=== PATIENT | female | born 1990 | race Caucasian/White ===

== ENCOUNTER 2019-06-02 13:01 | Observation (INO) ==
[2019-06-02 13:42] VITALS: BP 138/65
--- NOTE | 2019-06-02 16:59 | OB/GYN Progress Note ---
Date of Encounter: 06/02/19 Time of Encounter: 14:00 - Assessment and Plan (1) 30 weeks gestation of Status: Acute (2) Decreased movement Status: Acute Basline 140 and category 1, reassuring for gestational age. Patient was then feeling movements after arrival. Qualifiers: Fetus number: single or unspecified fetus Trimester: third trimester Qual ified Code(s): O36.8130 - Decreased movements, third trimester, not applicable or unspecified Objective - Vital Signs Vital Signs: Vital Signs Temp Pulse Resp BP Pulse Ox 06/02/19 13:36 98.5 F 81 14 138/65 99 Intake and Output 06/02/19 06/02/19 06/02/19 07:59 15:59 23:59 Other: Weight 158.1 kg Patient Weight 06/02/19 23:59 Weight 158.1 kg
== END 2019-06-02 14:50 | disposition home or self-care (01) ==
LOC: 1NENULAB
PROVIDERS: ADMIT Obstetrics & Gynecology; ATTEND Obstetrics & Gynecology

== ENCOUNTER 2019-07-05 11:03 | Observation (INO) ==
[2019-07-05 12:50] LABS: Bilirubin,Urine Negative (Negative); Blood,Urine Negative (Negative); Clarity,Urine Clear (Clear); Color,Urine Yellow (Yellow); Glucose,Urine (UA) Normal (Normal); Ketones,Urine Negative (Negative); Leukocyte Esterase,Urine Small (Negative); Nitrite,Urine Negative (Negative); Protein,Urine Negative (Neg-Trace); Specific Gravity,Urine 1.009 (1.010-1.025); Urobilinogen,Urine Normal (Normal)
[2019-07-05 12:57] LABS: Bacteria,Urine Few per hpf (None-Few); Basophils % 0.4 %; Eosinophils # 0.2 K/mcL (0.0-0.6); Eosinophils % 1.4 %; Hematocrit 35.3 % (35.3-44.9); Hemoglobin 11.2 g/dL (11.5-15.4); Hyaline Casts,Urine None Seen per lpf (None-Few); Immature Granulocytes % 0.7 % (0-4); Lymphocytes # 1.7 K/mcL (0.6-4.6); Lymphocytes % 15.4 %; Mean Corpuscular HGB Conc 31.7 g/dL (31.6-35.5); Mean Corpuscular Hemoglobin 25.5 pg (28.0-33.3); Mean Corpuscular Volume 80.4 fL (83.0-100.0); Mean Platelet Volume 9.7 fL (9.4-12.4); Monocytes # 0.6 K/mcL (0.0-1.3); Monocytes % 5.7 %; Neutrophils # 8.5 K/mcL (1.6-8.9); Platelet Count 272 K/mcL (140-400); RBC,Urine 0-3 per hpf (0-3); Red Blood Count 4.39 M/mcL (3.82-4.97); Red Cell Distribution Width 15.4 % (11.5-14.5); Segmented Neutrophils % 76.4 %; Squamous Epithelial Cell,Urine Many per lpf (None-Few); WBC,Urine 0-3 per hpf (0-3); White Blood Count 11.1 K/mcL (4.3-11.1)
[2019-07-05 13:09] LABS: Protein/Creatinine Ratio,Urine 0.17 mg/mg (0.00-0.20)
[2019-07-05 13:33] LABS: Alanine Aminotransferase 11 Units/L (7-52); Aspartate Amino Transferase 8 Units/L (13-39); BUN/Creatinine Ratio 19 (6-26); Blood Urea Nitrogen 8 mg/dL (6-20); Lactate Dehydrogenase 127 Units/L (140-271); Uric Acid 3.4 mg/dL (2.3-7.6); eGFR For African Americans > 60 (> 60); eGFR For Non-African Americans > 60 (> 60)
--- NOTE | 2019-07-05 14:24 | Discharge Summary ---
Date of Encounter: 07/05/19 Time of Encounter: 15:47 - Discharge Diagnosis (1) 34 weeks gestation of Priority: Primary Status: Acute Comments: Admit to observation for complaint of headache and visual disturbance (2) Headache in Priority: Secondary Status: Acute Comments: Blood pressures within normal limits while being observed All Pre-Eclampsia labs normal Qualifiers: Trimester: third trimester Qualified Code(s): O26.893 - Other specified related conditions, third trimester; R51 - Headache (3) NST (non-stress test) reactive Priority: Secondary Status: Acute Comments: Category I tracing (4) Gestational diabetes mellitus (GDM) controlled on oral hypoglycemic drug Priority: Secondary Status: Acute Comments: Continue Metformin as ordered Follow up for 2-hr GTT testing Qualifiers: Trimester: third trimester Qualified Code(s): O24.415 - Gestational diabetes mellitus in , controlled by oral hypoglycemic drugs - Discharge Medications Prescriptions: No Action Metformin HCl [Fortamet] 500 mg PO DAILY Aspirin [Adult Aspirin Regimen] 81 mg PO DAILY Fluticasone Propionate Nasal [Flonase] 1 spray PRN PRN PRN Reason: Congestion Pnv No.95/Ferrous Fum/Folic AC [ Caplet] 1 each PO DAILY Home Medications: Pnv No.95/Ferrous Fum/Folic AC [ Caplet] 1 each PO DAILY 02/02/19 [History] Metformin HCl [Fortamet] 500 mg PO DAILY 06/02/19 [History] Aspirin [Adult Aspirin Regimen] 81 mg PO DAILY 06/08/19 [History] Fluticasone Propionate Nasal [Flonase] 1 spray PRN PRN 07/05/19 [History] Allergies/Adverse Reactions: Allergy/AdvReac Type Severity Reaction Status Date / Time No Known Allergies Allergy Verified 07/05/19 12:13 Data Procedures and tests throughout hospitalization: Laboratory Tests 07/05/19 07/05/19 07/05/19 12:39 12:39 12:39 WBC 11.1 RBC 4.39 Hgb 11.2 L Hct 35.3 MCV 80.4 L MCH 25.5 L MCHC 31.7 RDW 15.4 H Plt Count 272 MPV 9.7 Immature Gran % 0.7 Seg Neutrophils % 76.4 Lymphocytes % 15.4 Monocytes % 5.7 Eosinophils % 1.4 Basophils % 0.4 Neutrophils # 8.5 Lymphocytes # 1.7 Monocytes # 0.6 Eosinophils # 0.2 Basophils # 0.0 BUN Creatinine Est GFR ( Amer) Est GFR (Non-Af Amer) BUN/Creatinine Ratio Uric Acid AST ALT Lactate Dehydrogenase Urine Color Yellow Urine Clarity Clear Urine pH 7.0 Ur Specific Moville 1.009 L Urine Protein Negative Urine Glucose (UA) Normal Urine Ketones Negative Urine Blood Negative Urine Nitrite Negative Urine Bilirubin Negative Urine Urobilinogen Normal Ur Leukocyte Esterase Small H Urine Microscopic RBC 0-3 Urine Microscopic WBC 0-3 Ur Squamous Epith Cells Many H Urine Bacteria Few Hyaline Casts None Seen Ur Culture Indicated? YES A Urine Creatinine 30 Protein/Creatinin Ratio 0.17 Urine Total Protein 5 07/05/19 12:39 WBC RBC Hgb Hct MCV MCH MCHC RDW Plt Count MPV Immature Gran % Seg Neutrophils % Lymphocytes % Monocytes % Eosinophils % Basophils % Neutrophils # Lymphocytes # Monocytes # Eosinophils # Basophils # BUN 8 Creatinine 0.43 L Est GFR ( Amer) > 60 Est GFR (Non-Af Amer) > 60 BUN/Creatinine Ratio 19 Uric Acid 3.4 AST 8 L ALT 11 Lactate Dehydrogenase 127 L Urine Color Urine Clarity Urine pH Ur Specific Moville Urine Protein Urine Glucose (UA) Urine Ketones Urine Blood Urine Nitrite Urine Bilirubin Urine Urobilinogen Ur Leukocyte Esterase Urine Microscopic RBC Urine Microscopic WBC Ur Squamous Epith Cells Urine Bacteria Hyaline Casts Ur Culture Indicated? Urine Creatinine Protein/Creatinin Ratio Urine Total Protein Labs on day of discharge: Labs from last 24 hours 07/05/19 07/05/19 07/05/19 12:39 12:39 12:39 WBC RBC Hgb Hct MCV MCH MCHC RDW Plt Count MPV Immature Gran % Seg Neutrophils % Lymphocytes % Monocytes % Eosinophils % Basophils % Neutrophils # Lymphocytes # Monocytes # Eosinophils # Basophils # BUN 8 Creatinine 0.43 L Est GFR ( Amer) > 60 Est GFR (Non-Af Amer) > 60 BUN/Creatinine Ratio 19 Uric Acid 3.4 AST 8 L ALT 11 Lactate Dehydrogenase 127 L Urine Color Yellow Urine Clarity Clear Urine pH 7.0 Ur Specific Moville 1.009 L Urine Protein Negative Urine Glucose (UA) Normal Urine Ketones Negative Urine Blood Negative Urine Nitrite Negative Urine Bilirubin Negative Urine Urobilinogen Normal Ur Leukocyte Esterase Small H Urine Microscopic RBC 0-3 Urine Microscopic WBC 0-3 Ur Squamous Epith Cells Many H Urine Bacteria Few Hyaline Casts None Seen Ur Culture Indicated? YES A Urine Creatinine 30 Protein/Creatinin Ratio 0.17 Urine Total Protein 5 07/05/19 12:39 WBC 11.1 RBC 4.39 Hgb 11.2 L Hct 35.3 MCV 80.4 L MCH 25.5 L MCHC 31.7 RDW 15.4 H Plt Count 272 MPV 9.7 Immature Gran % 0.7 Seg Neutrophils % 76.4 Lymphocytes % 15.4 Monocytes % 5.7 Eosinophils % 1.4 Basophils % 0.4 Neutrophils # 8.5 Lymphocytes # 1.7 Monocytes # 0.6 Eosinophils # 0.2 Basophils # 0.0 BUN Creatinine Est GFR ( Amer) Est GFR (Non-Af Amer) BUN/Creatinine Ratio Uric Acid AST ALT Lactate Dehydrogenase Urine Color Urine Clarity Urine pH Ur Specific Moville Urine Protein Urine Glucose (UA) Urine Ketones Urine Blood Urine Nitrite Urine Bilirubin Urine Urobilinogen Ur Leukocyte Esterase Urine Microscopic RBC Urine Microscopic WBC Ur Squamous Epith Cells Urine Bacteria Hyaline Casts Ur Culture Indicated? Urine Creatinine Protein/Creatinin Ratio Urine Total Protein Date of admission: 07/05/19 11:03 Primary care physician: Pat Pope Discharging clinician: Patricia Varner Anticipated date of discharge: 07/05/19 - Patient Status Disposition: Home, Self-Care Condition: Good Functional capacity at discharge: independent ambulation Overall status at discharge: patient is progressing back to baseline - Discharge Instructions Follow Up With: Pat Pope, BLANCA [Primary Care Provider] - Forms: Work/School Release Additional Instructions: Keep OB appointments LABOR AND DELIVERY DISCHARGE INSTRUCTIONS Signs and Symptoms to be Reported to your Doctor Immediately: * Sudden gush, continuous or intermittent lead of fluid from vagina (note the time of gush and color of fluid) * Onset of bright red vaginal bleeding with or without pain (if you had a vaginal exam during this visit you may notice some dark red spotting. This is normal.) * Lower abdominal cramping or backache that is premenstrual-like feeling. * More than 6 contractions in one hour. * Burning during urination, having to urinate more frequently or pain in your mid-back. * A change in the baby's activity. This could be an increase or decrease in activity. * Severe headache which does not go away with tylenol. * Sudden swelling in the face, hands, arms and/or legs. * Upper abdominal pain - sometimes associated with heartburn or nausea and is not relieved by Maalox, Mylanta or Tums. * Dizziness or blurred vision or visual disturbances (seeing stars/lights). * Kick Counts One hour after a meal, lay down on one side in a quiet place. Count the number of scar the baby moves during an hour. If less than 6 movements, notify your physician. Diet: *Force fluids - 8-10 tall glasses of fluid per day. May include popsicles and jello. 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 She states she did not take any Tylenol for the headache. She reports positive movement, denies fluid leakage, vaginal bleeding and contractions. Pre-E labs drawn, all WNL, blood pressures WNL while here. After further investigation, patient states that she was bitten multiple times by bugs while she was outside yesterday. States she has been congested and even feels that her throat was a little swollen after this. Patient was instructed to take Benadryl when she gets home since it sounds as though she may be reacting to the insect bites. Encouraged to return for any s/s of pre-eclampsia. She has an NST scheduled tomorrow for GDM. Time Attestation: Total time spent providing and/or coordinating discharge services: Time Spent: Less than 30 minutes Exam - Constitutional General appearance IM: A&O X 3, no acute distress, answers questions appropriately - Respiratory Respiratory exam: Present: CTAB. Absent: respiratory distress - Cardiovascular Cardiovascular exam IM: Present: RRR, +S1, +S2. Absent: irregular rhythm - GI/Abdominal GI/Abdominal exam IM: normal bowel sounds, soft - Rectal Rectal exam: deferred - External exam: normal external exam - Extremities Exam Extremities exam IM: Present: full ROM, normal capillary refill, normal inspection. Absent: calf tenderness - Neurological Exam Neurological exam: alert, normal gait, oriented X3 - VTE Reasons for not Prescribing Prophylaxis: Treatment not Indicated - Low risk for VTE
== END 2019-07-05 14:30 | disposition home or self-care (01) ==
LOC: 1NENULAB
PROVIDERS: ADMIT Registered Nurse; ATTEND Registered Nurse

== ENCOUNTER → 2019-07-27 19:27 | Observation (INO) ==
[2019-07-27 17:41] LABS: Basophils # 0.1 K/mcL (0.0-0.2); Basophils % 0.4 %; Eosinophils # 0.1 K/mcL (0.0-0.6); Eosinophils % 1.2 %; Hematocrit 35.3 % (35.3-44.9); Hemoglobin 11.5 g/dL (11.5-15.4); Immature Granulocytes % 0.9 % (0-4); Lymphocytes # 2.2 K/mcL (0.6-4.6); Lymphocytes % 18.7 %; Mean Corpuscular HGB Conc 32.6 g/dL (31.6-35.5); Mean Corpuscular Hemoglobin 25.9 pg (28.0-33.3); Mean Corpuscular Volume 79.5 fL (83.0-100.0); Mean Platelet Volume 10.1 fL (9.4-12.4); Monocytes # 0.7 K/mcL (0.0-1.3); Monocytes % 5.9 %; Neutrophils # 8.6 K/mcL (1.6-8.9); Platelet Count 259 K/mcL (140-400); Red Blood Count 4.44 M/mcL (3.82-4.97); Red Cell Distribution Width 15.5 % (11.5-14.5); Segmented Neutrophils % 72.9 %; White Blood Count 11.8 K/mcL (4.3-11.1)
[2019-07-27 17:44] LABS: Creatinine,Urine 122 mg/dL; Protein/Creatinine Ratio,Urine 0.12 mg/mg (0.00-0.20)
[2019-07-27 19:12] LABS: Alanine Aminotransferase 9 Units/L (7-52); Aspartate Amino Transferase 8 Units/L (13-39); BUN/Creatinine Ratio 15 (6-26); Blood Urea Nitrogen 8 mg/dL (6-20); Lactate Dehydrogenase 112 Units/L (140-271); Uric Acid 3.8 mg/dL (2.3-7.6); eGFR For African Americans > 60 (> 60); eGFR For Non-African Americans > 60 (> 60)
[2019-07-27 19:18] LABS: Amphetamine Screen,Urine Negative ng/mL (Cutoff=1000); Barbiturate Screen,Urine Negative ng/mL (Cutoff=200); Benzodiazepines Screen,Urine Negative ng/mL (Cutoff=200); Cannabinoid Screen,Urine Positive ng/mL (Cutoff = 50); Cocaine Screen,Urine Negative ng/mL (Cutoff= 300); Opiate Screen,Urine Negative ng/mL (Cutoff=300); Phencyclidine Screen,Urine Negative ng/mL (Cutoff=25)
--- NOTE | 2019-07-27 19:21 | Discharge Summary ---
Date of Encounter: 07/27/19 Time of Encounter: 19:21 - Discharge Diagnosis (1) 38 weeks gestation of Priority: Primary Status: Acute Comments: admitted for PIH evaluation (2) Elevated blood pressure affecting in third trimester, antepartum Priority: Secondary Status: Acute Comments: PIH labs WNL BP WNL (3) NST (non-stress test) reactive Priority: Secondary Status: Acute Comments: FHR 125 bpm moderate variability +15x15 accels no decels noted. No contractions noted. Cat. 1 tracing - Discharge Medications Prescriptions: No Action Metformin HCl [Fortamet] 500 mg PO DAILY Aspirin [Adult Aspirin Regimen] 81 mg PO DAILY Fluticasone Propionate Nasal [Flonase] 1 spray PRN PRN PRN Reason: Congestion Cetirizine HCl 1 tab Pnv No.95/Ferrous Fum/Folic AC [ Caplet] 1 each PO DAILY Home Medications: Pnv No.95/Ferrous Fum/Folic AC [ Caplet] 1 each PO DAILY 02/02/19 [History] Metformin HCl [Fortamet] 500 mg PO DAILY 06/02/19 [History] Aspirin [Adult Aspirin Regimen] 81 mg PO DAILY 06/08/19 [History] Fluticasone Propionate Nasal [Flonase] 1 spray PRN PRN 07/05/19 [History] Cetirizine HCl 1 tab 07/27/19 [History] Allergies/Adverse Reactions: Allergy/AdvReac Type Severity Reaction Status Date / Time No Known Allergies Allergy Verified 07/05/19 12:13 Data Procedures and tests throughout hospitalization: Laboratory Tests 07/27/19 07/27/19 07/27/19 16:50 16:50 16:50 WBC 11.8 H RBC 4.44 Hgb 11.5 Hct 35.3 MCV 79.5 L MCH 25.9 L MCHC 32.6 RDW 15.5 H Plt Count 259 MPV 10.1 Immature Gran % 0.9 Seg Neutrophils % 72.9 Lymphocytes % 18.7 Monocytes % 5.9 Eosinophils % 1.2 Basophils % 0.4 Neutrophils # 8.6 Lymphocytes # 2.2 Monocytes # 0.7 Eosinophils # 0.1 Basophils # 0.1 BUN Creatinine Est GFR ( Amer) Est GFR (Non-Af Amer) BUN/Creatinine Ratio Uric Acid AST ALT Lactate Dehydrogenase Urine Creatinine 122 Protein/Creatinin Ratio 0.12 Urine Total Protein 15 H Urine Opiates Screen Negative Ur Buprenorphine Scrn Negative Ur Barbiturates Screen Negative Ur Phencyclidine Scrn Negative Ur Amphetamines Screen Negative U Benzodiazepines Scrn Negative Urine Cocaine Screen Negative U Marijuana (THC) Screen Positive H Ur Drug Screen Interp See Below Specimen Rejected Hemolyzed 07/27/19 18:12 WBC RBC Hgb Hct MCV MCH MCHC RDW Plt Count MPV Immature Gran % Seg Neutrophils % Lymphocytes % Monocytes % Eosinophils % Basophils % Neutrophils # Lymphocytes # Monocytes # Eosinophils # Basophils # BUN 8 Creatinine 0.54 L Est GFR ( Amer) > 60 Est GFR (Non-Af Amer) > 60 BUN/Creatinine Ratio 15 Uric Acid 3.8 AST 8 L ALT 9 Lactate Dehydrogenase 112 L Urine Creatinine Protein/Creatinin Ratio Urine Total Protein Urine Opiates Screen Ur Buprenorphine Scrn Ur Barbiturates Screen Ur Phencyclidine Scrn Ur Amphetamines Screen U Benzodiazepines Scrn Urine Cocaine Screen U Marijuana (THC) Screen Ur Drug Screen Interp Specimen Rejected Labs on day of discharge: Labs from last 24 hours 07/27/19 07/27/19 07/27/19 18:12 16:50 16:50 WBC 11.8 H RBC 4.44 Hgb 11.5 Hct 35.3 MCV 79.5 L MCH 25.9 L MCHC 32.6 RDW 15.5 H Plt Count 259 MPV 10.1 Immature Gran % 0.9 Seg Neutrophils % 72.9 Lymphocytes % 18.7 Monocytes % 5.9 Eosinophils % 1.2 Basophils % 0.4 Neutrophils # 8.6 Lymphocytes # 2.2 Monocytes # 0.7 Eosinophils # 0.1 Basophils # 0.1 BUN 8 Creatinine 0.54 L Est GFR ( Amer) > 60 Est GFR (Non-Af Amer) > 60 BUN/Creatinine Ratio 15 Uric Acid 3.8 AST 8 L ALT 9 Lactate Dehydrogenase 112 L Urine Creatinine Protein/Creatinin Ratio Urine Total Protein Urine Opiates Screen Ur Buprenorphine Scrn Ur Barbiturates Screen Ur Phencyclidine Scrn Ur Amphetamines Screen U Benzodiazepines Scrn Urine Cocaine Screen U Marijuana (THC) Screen Ur Drug Screen Interp Specimen Rejected Hemolyzed 07/27/19 16:50 WBC RBC Hgb Hct MCV MCH MCHC RDW Plt Count MPV Immature Gran % Seg Neutrophils % Lymphocytes % Monocytes % Eosinophils % Basophils % Neutrophils # Lymphocytes # Monocytes # Eosinophils # Basophils # BUN Creatinine Est GFR ( Amer) Est GFR (Non-Af Amer) BUN/Creatinine Ratio Uric Acid AST ALT Lactate Dehydrogenase Urine Creatinine 122 Protein/Creatinin Ratio 0.12 Urine Total Protein 15 H Urine Opiates Screen Negative Ur Buprenorphine Scrn Negative Ur Barbiturates Screen Negative Ur Phencyclidine Scrn Negative Ur Amphetamines Screen Negative U Benzodiazepines Scrn Negative Urine Cocaine Screen Negative U Marijuana (THC) Screen Positive H Ur Drug Screen Interp See Below Specimen Rejected Date of admission: 07/27/19 16:15 Primary care physician: Pat Pope Discharging clinician: Marcela Jeffrey Anticipated date of discharge: 07/27/19 - Patient Status Disposition: Home, Self-Care Condition: Good Functional capacity at discharge: independent ambulation - Discharge Instructions Follow Up With: Pat Pope, BLANCA [Primary Care Provider] - Raquel Carlisle DO [Partnered Physician] - - Diet and Activity Activity: increase activity as tolerated Diet: regular diet 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 Patient denies headache, visual disturbances or epigastric pain. Patient reports good movement. Time Attestation: Total time spent providing and/or coordinating discharge services: Time Spent: Less than 30 minutes Exam - Constitutional General appearance IM: A&O X 3, morbidly obese, pleasant, answers questions appropriately - Respiratory Respiratory exam: Present: CTAB - Cardiovascular Cardiovascular exam IM: Present: RRR, +S1, +S2 - GI/Abdominal GI/Abdominal exam IM: normal bowel sounds - Extremities Exam Extremities exam IM: Present: full ROM, normal capillary refill, normal inspection - Neurological Exam Neurological exam: alert, oriented X3, reflexes normal - VTE Reasons for not Prescribing Prophylaxis: Treatment not Indicated - Low risk for VTE
== END | disposition home or self-care (01) ==
LOC: 1NENULAB
PROVIDERS: ADMIT Advanced Practice Midwife; ATTEND Advanced Practice Midwife

== ENCOUNTER 2019-08-03 04:00 | Observation (INO) ==
[2019-08-03] MEDS ORDERED: *HR* Nalbuphine 10 MG/ML AMPUL IVP PRN (04:24)
[2019-08-03] MEDS ORDERED: Lidocaine 1% 20 ML MDV INFILT PRN (04:24)
[2019-08-03] MEDS ORDERED: Penicillin G Potassium 5,000,000 UNIT in 0.9 % Sodium Chloride Mini Bag 100 ML IVPB ONE (04:24)
[2019-08-03] MEDS ORDERED: Naloxone 0.4 MG/ML INJ IVP PRN (04:24)
[2019-08-03] MEDS ORDERED: Metoclopramide 10 MG/2 ML VIAL IVP PRN (04:24)
[2019-08-03] MEDS ORDERED: Famotidine 20 MG/2 ML VIAL IVP PRN (04:24)
[2019-08-03] MEDS ORDERED: Ondansetron 4 MG/2 ML VIAL IVP PRN (04:24)
[2019-08-03] MEDS ORDERED: Ringers Solution, Lactated 1,000 ML IVC SCH (04:30)
[2019-08-03 04:48] LABS: Basophils % 0.4 %; Eosinophils # 0.1 K/mcL (0.0-0.6); Hemoglobin 11.5 g/dL (11.5-15.4); Immature Granulocytes % 0.8 % (0-4); Lymphocytes # 2.1 K/mcL (0.6-4.6); Lymphocytes % 18.7 %; Mean Corpuscular HGB Conc 31.9 g/dL (31.6-35.5); Mean Corpuscular Hemoglobin 25.3 pg (28.0-33.3); Mean Corpuscular Volume 79.3 fL (83.0-100.0); Mean Platelet Volume 9.6 fL (9.4-12.4); Monocytes # 0.5 K/mcL (0.0-1.3); Monocytes % 4.7 %; Neutrophils # 8.5 K/mcL (1.6-8.9); Platelet Count 242 K/mcL (140-400); Red Blood Count 4.54 M/mcL (3.82-4.97); Red Cell Distribution Width 15.6 % (11.5-14.5); Segmented Neutrophils % 74.4 %; White Blood Count 11.4 K/mcL (4.3-11.1)
[2019-08-03 04:57] LABS: Creatinine,Urine 61 mg/dL; Protein/Creatinine Ratio,Urine 0.16 mg/mg (0.00-0.20)
[2019-08-03 05:08] LABS: Alanine Aminotransferase 11 Units/L (7-52); Aspartate Amino Transferase 9 Units/L (13-39); BUN/Creatinine Ratio 20 (6-26); Blood Urea Nitrogen 9 mg/dL (6-20); Lactate Dehydrogenase 120 Units/L (140-271); eGFR For African Americans > 60 (> 60); eGFR For Non-African Americans > 60 (> 60)
[2019-08-03] MEDS: miSOPROStol 25 MCG TABLET PO PRN ×2 (05:16→10:06)
[2019-08-03 05:36] LABS: Glucose 133 mg/dL (70-105)
[2019-08-03 05:37] LABS: Amphetamine Screen,Urine Negative ng/mL (Cutoff=1000); Barbiturate Screen,Urine Negative ng/mL (Cutoff=200); Benzodiazepines Screen,Urine Negative ng/mL (Cutoff=200); Cannabinoid Screen,Urine Positive ng/mL (Cutoff = 50); Cocaine Screen,Urine Negative ng/mL (Cutoff= 300); Opiate Screen,Urine Negative ng/mL (Cutoff=300); Phencyclidine Screen,Urine Negative ng/mL (Cutoff=25)
[2019-08-03] MEDS: Penicillin G Potassium 2,500,000 UNIT in 0.9 % Sodium Chloride 100 ML IVPB SCH ×3 (09:03→17:10)
--- NOTE | 2019-08-03 09:55 | Anesthesia Evaluation PreOp ---
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 States she has frequent back pain and sees a chiropractor.) Anesthesia History: No Prior Anesthetic Complications, Past Anesthesia : Yes (39 weeks, ) Alcohol Use: none Drug use: marijuana Medications and Allergies Pnv No.95/Ferrous Fum/Folic AC [ Caplet] 1 each PO DAILY 02/02/19 [History] Metformin HCl [Fortamet] 500 mg PO DAILY 06/02/19 [History] Aspirin [Adult Aspirin Regimen] 81 mg PO DAILY 06/08/19 [History] Fluticasone Propionate Nasal [Flonase] 1 spray PRN PRN 07/05/19 [History] Cetirizine HCl 1 tab PO DAILY 07/27/19 [History] Allergy/AdvReac Type Severity Reaction Status Date / Time No Known Allergies Allergy Verified 08/03/19 04:29 - Meds/Allergy Pre-op Review Medications Reviewed: Yes Allergies Reviewed: Yes Beta Blockers on Current Med List: No Anesthesia Results - Labs 08/03/19 04:30 08/03/19 04:30 Anesthesia Exam O2 Sat Height 1.63 m Weight 161.025 kg Height: 64 Weight: 355 - HEENT Pupil (Motor): Pupils equal Mallampati: III Teeth: Normal Oral Opening: Greater than 3 - COMMERCIAL ADMINISTRATOR LOC: Oriented COMMERCIAL ADMINISTRATOR Motor: Normal RUE, Normal LUE, Normal RLE, Normal LLE, Normal Face COMMERCIAL ADMINISTRATOR Sensory: Normal: RUE, LUE, RLE, LLE, Face - Cardiac Rhythm: Regular Murmur: None JVD: No Carotid Bruit: No - Pulmonary Breath Sounds: bilateral Clear Respiratory Effort: Symmetrical Anesthesia Assess/Plan ASA Score: 3 Level of consciousness: Cooperative Anesthetic Plan: Epidural Monitoring Plan: Standard Monitors
[2019-08-03] MEDS ORDERED: *HR* Promethazine 25 MG/ML VIAL IVP ONE (14:53)
--- NOTE | 2019-08-03 15:00 | Event Note ---
Date of Encounter: 08/03/19 Time of Encounter: 14:[address] double cervical jin balloon without success. Patient offered Cervidil and she accepts. Dr. Wallace aware of plan and is agreeable.
[2019-08-03] MEDS ORDERED: *HR* FentaNYL (PF) 100 MCG/2 ML VIAL EP ONE (15:01)
[2019-08-03] MEDS ORDERED: EPHEDrine 50 MG/ML VIAL IVP PRN (15:01)
[2019-08-03] MEDS ORDERED: Epidural Premix (fent/bupiv) 110 ML EP SCH (15:15)
--- NOTE | 2019-08-03 20:16 | OB/GYN History & Physical ---
Date of Encounter: 08/03/19 Time of Encounter: 08:30 Assessment and Plan (1) 39 weeks gestation of Current visit: Yes Status: Acute Given 39 weeks gestation with gestational diabetes will admit to labor and delivery and induction of labor. I did discuss with patient treatment options and she has been given Cytotec and 7 some cramping. I did attempt Reynoso catheter placement using both the speculum in catheter guide without success. Patient cervix is relatively long and minimally dilated at this point we will continue with Cytotec and consider attempt later (2) Gestational diabetes mellitus (GDM) controlled on oral hypoglycemic drug Current visit: No Status: Acute Were checked for hour blood sugars Qualifiers: Trimester: third trimester Qualified Code(s): O24.415 - Gestational diabetes mellitus in , controlled by oral hypoglycemic drugs History of Present Illness Chief complaint: Here for induction HPI: Ms. Rich is a 29 year old female female at 39 weeks gestation presents for induction of labor. is uncomplicated by gestational diabetes. She has had excellent blood sugar control. After having discussed with patient options Dr. Carlisle and she decided that given 39 weeks gestation induction of labor was advisable secondary to increased risk of compromise with increasing gestational age. Patient signed appropriate induction consent. Upon arrival she reports good movement no bleeding or leakage fluid Past Med Surg Social Fam HX - Past Medical History Source: patient, old records reviewed Medical history: no medical history Psychiatric history: anxiety, depression - Past Surgical History Surgical History: other Additional surgical history: tonsils; wisdom teeth - Social History Smoking Status: Former smoker Smokeless Tobacco Status: No Alcohol use: none Drug use: marijuana - Family History Mother Adopted: No Living Status: Still Living Hx Family Cardiac Disorders: Yes (htn) Hx Family Respiratory Disorders: No Hx Family Cancer: No Hx Family GI Disorders: No Hx Family Genitourinary Disorders: No Hx Family Endocrine Disorder: No Hx Family Musculoskeletal Disorders: No Hx Family Neuromuscular Disorders: No Hx Family Neurologic Disorders: No Hx Family HEENT Disorders: No Hx Family Autoimmune Disorders: No Hx Family Reproductive Disorders: No Hx Family Psychosocial Disorders: No Hx Family Medical Disorders: No Obstetrical History - Pregnancies : 1 Medications and Allergies Pnv No.95/Ferrous Fum/Folic AC [ Caplet] 1 each PO DAILY 02/02/19 [History] Metformin HCl [Fortamet] 500 mg PO DAILY 06/02/19 [History] Aspirin [Adult Aspirin Regimen] 81 mg PO DAILY 06/08/19 [History] Fluticasone Propionate Nasal [Flonase] 1 spray PRN PRN 07/05/19 [History] Cetirizine HCl 1 tab PO DAILY 07/27/19 [History] Allergy/AdvReac Type Severity Reaction Status Date / Time No Known Allergies Allergy Verified 08/03/19 04:29 Exam - Constitutional Constitutional: well developed, obese - HEENT HEENT: EOMI, PERRL - Neck Neck exam: full ROM - Lungs Respiratory exam: CTAB - Cardiovascular Cardiovascular exam: RRR - Abdomen Abdomen: Present: gravid - Extremities Extremities exam: full ROM Deep Tendon Reflex Grade: 2+ Normal - Cervix Dilation: 1 Effacement: 70 Station: -2 Results Result Diagrams: 08/03/19 04:30 08/03/19 04:30 Abnormal lab results WBC 11.4 K/mcL (4.3-11.1) H 08/03/19 04:30 MCV 79.3 fL (83.0-100.0) L 08/03/19 04:30 MCH 25.3 pg (28.0-33.3) L 08/03/19 04:30 RDW 15.6 % (11.5-14.5) H 08/03/19 04:30 Creatinine 0.46 mg/dL (0.60-1.20) L 08/03/19 04:30 Glucose 133 mg/dL (70-105) H 08/03/19 04:30 AST 9 Units/L (13-39) L 08/03/19 04:30 Lactate Dehydrogenase 120 Units/L (140-271) L 08/03/19 04:30 U Marijuana (THC) Screen Positive ng/mL (Cutoff = 50) H 08/03/19 04:30 All other labs normal. - VTE Reasons for not Prescribing Prophylaxis: Treatment not Indicated - Low risk for VTE
--- NOTE | 2019-08-03 20:24 | OB Labor Progress Note ---
Date of Encounter: 08/03/19 Time of Encounter: 19:40 Labor Progress Note - Subjective Subjective: Pt s/p cytotec x 2 and cervidil. She is having minimal cramping. - Vital Signs Vital Signs: BP's good - Cervix Cervix: 1/50/-3 - Heart Tones Heart Tones: RNST - [place]: irritability - Plan Plan: Pt with reassuring FWB based on monitoring throught the day. Pt badly wants vaginal delivery and after d/w pt we have mutually decided that given lack of response to induction agents thus far best bet would be to d/c home with hopes that her cervix would become for favorable and her body would become more responsive to induction given more time. Pt has had excellent BS control and she states her baby is active. After d/w pt options decision made to d/c pt home to f/u on Friday for another attempt at induction.
== END 2019-08-03 20:15 | disposition home or self-care (01) | DRG 566 ==
LOC: 1NENULAB 04:12 → INTOOBSV 04:12
PROVIDERS: ADMIT Obstetrics & Gynecology; ATTEND Obstetrics & Gynecology

== ENCOUNTER 2019-08-08 09:50 | Inpatient (IN) ==
[2019-08-08 08:34] LABS: Basophils % 0.4 %; Eosinophils # 0.1 K/mcL (0.0-0.6); Eosinophils % 1.2 %; Hemoglobin 11.8 g/dL (11.5-15.4); Immature Granulocytes % 0.7 % (0-4); Lymphocytes # 1.8 K/mcL (0.6-4.6); Lymphocytes % 19.2 %; Mean Corpuscular HGB Conc 31.9 g/dL (31.6-35.5); Mean Corpuscular Hemoglobin 25.9 pg (28.0-33.3); Mean Corpuscular Volume 81.1 fL (83.0-100.0); Mean Platelet Volume 9.9 fL (9.4-12.4); Monocytes # 0.6 K/mcL (0.0-1.3); Monocytes % 6.5 %; Neutrophils # 6.8 K/mcL (1.6-8.9); Platelet Count 243 K/mcL (140-400); Red Blood Count 4.56 M/mcL (3.82-4.97); Red Cell Distribution Width 15.7 % (11.5-14.5); White Blood Count 9.5 K/mcL (4.3-11.1)
--- NOTE | 2019-08-08 09:30 | OB/GYN History & Physical ---
Date of Encounter: 08/08/19 Time of Encounter: 09:28 Assessment and Plan (1) Gestational diabetes Current visit: Yes Status: Acute Qualifiers: Gestational diabetes mellitus control: oral hypoglycemic-controlled Trimester: third trimester Qualified Code(s): O24.415 - Gestational diabetes mellitus in , controlled by oral hypoglycemic drugs (2) GBBS (group B beta hemolytic Streptococcus) pharyngitis Current visit: Yes Status: Acute Start IV penicillin (3) 39 weeks gestation of Current visit: No Status: Acute Patient currently 39 weeks gestation with oral glycemic control gestational diabetes. Because of this and inherent risks to with increased risk for stillbirth decision was made made to proceed with induction of labor. She had failed attempt at induction last Friday is here today to try again. Her cervix on arrival was 1 cm dilated 70% effaced -2 station and soft. Will give patient 50 g Cytotec orally consider Reynoso catheter placement in the cervix if no significant response in 4 hours. She is group B beta strep positive therefore give prophylaxis during induction and labor. History of Present Illness Chief complaint: gestational diabetes, controlled with metformin, 39 weeks gestation HPI: Ms. Rich is a 29 year old female female at 39 weeks gestation presents for induction of labor. This has been complicated by gestational diabetes which has been well controlled with metformin 500 mg by mouth twice daily. On arrival today she reports irregular contractions she denies bleeding or leakage of fluid. Attempt was made at induction of labor was to see which time she was 39 weeks gestation however her cervix was quite unfavorable despite Cytotec 50 mg orally 2 and Cervidil she was hardly felix. Attempts at Reynoso placement through the cervix and been unsuccessful. Because this she elected to go home with repeat attempt at induction today. She is also comfortable recent positive group B beta strep with vaginal culture. Past Med Surg Social Fam HX - Past Medical History Source: patient, old records reviewed Medical history: no medical history Psychiatric history: anxiety, depression - Past Surgical History Surgical History: other Additional surgical history: tonsils; wisdom teeth - Social History Smoking Status: Former smoker Smokeless Tobacco Status: No Alcohol use: none Drug use: marijuana - Family History Mother Adopted: No Living Status: Still Living Hx Family Cardiac Disorders: Yes (htn) Hx Family Respiratory Disorders: No Hx Family Cancer: No Hx Family GI Disorders: No Hx Family Endocrine Disorder: No Hx Family Neuromuscular Disorders: No Hx Family Neurologic Disorders: No Hx Family HEENT Disorders: No Hx Family Autoimmune Disorders: No Hx Family Reproductive Disorders: No Hx Family Psychosocial Disorders: No Hx Family Medical Disorders: No Obstetrical History - Pregnancies : 1 Medications and Allergies Pnv No.95/Ferrous Fum/Folic AC [ Caplet] 1 each PO DAILY 02/02/19 [History] Metformin HCl [Fortamet] 500 mg PO DAILY 06/02/19 [History] Aspirin [Adult Aspirin Regimen] 81 mg PO DAILY 06/08/19 [History] Fluticasone Propionate Nasal [Flonase] 1 spray PRN PRN 07/05/19 [History] Cetirizine HCl 1 tab PO DAILY 07/27/19 [History] Allergy/AdvReac Type Severity Reaction Status Date / Time No Known Allergies Allergy Verified 08/03/19 04:29 Exam - Vital Signs Vital signs: Initial Vital Signs Temp Pulse Resp BP 97.2 F L 92 15 140/82 08/08/19 06:29 08/08/19 06:29 08/08/19 06:29 08/08/19 06:29 - Constitutional Constitutional: well developed, well nourished, obese - HEENT HEENT: EOMI, PERRL - Neck Neck exam: full ROM - Lungs Respiratory exam: CTAB - Cardiovascular Cardiovascular exam: RRR - Abdomen Abdomen: Present: gravid - Extremities Extremities exam: full ROM Deep Tendon Reflex Grade: 2+ Normal - Cervix Dilation: 1 Effacement: 70 Station: -2 Results Result Diagrams: 08/08/19 07:50 08/08/19 07:50 Abnormal lab results MCV 81.1 fL (83.0-100.0) L 08/08/19 07:50 MCH 25.9 pg (28.0-33.3) L 08/08/19 07:50 RDW 15.7 % (11.5-14.5) H 08/08/19 07:50 Glucose 109 mg/dL (70-105) H 08/08/19 07:50 All other labs normal.
[~2019-08-08 09:50] MED LIST: Famotidine 20 MG/2 ML VIAL IVP PRN; Metoclopramide 10 MG/2 ML VIAL IVP PRN; Naloxone 0.4 MG/ML INJ IVP PRN; Penicillin G Potassium 5,000,000 UNIT in 0.9 % Sodium Chloride Mini Bag 100 ML IVPB SCH; Ringers Solution, Lactated 1,000 ML ONE; miSOPROStol 25 MCG TABLET PO STA
[2019-08-08] MEDS ORDERED: Ringers Solution, Lactated 1,000 ML IVC SCH (10:00)
[2019-08-08] MEDS: *HR* Nalbuphine 10 MG/ML AMPUL IVP PRN ×2 (13:10→19:15)
[2019-08-08] MEDS ORDERED: *HR* FentaNYL (PF) 100 MCG/2 ML VIAL EP ONE (13:39)
[2019-08-08] MEDS ORDERED: Naloxone 0.4 MG/ML INJ IVP PRN (13:39)
[2019-08-08] MEDS ORDERED: Ropivacaine/PF 0.2% 20 ML VIAL EP ONE (13:39)
[2019-08-08] MEDS ORDERED: EPHEDrine 50 MG/ML VIAL IVP PRN (13:39)
[2019-08-08] MEDS ORDERED: Ondansetron 4 MG/2 ML VIAL IVP PRN (13:39)
--- NOTE | 2019-08-08 13:41 | Event Note ---
Date of Encounter: 08/08/19 Time of Encounter: 13:37 Pt not feeling any uc's with the cytotec. Louisa Martinez CNM was able to place jin catheter through the cervix and 40 cc baloon was inflated so that jin induction could be performed. Given lack of response to Cytotec, will begin low dose Pitocin. RNST. NO other c/o.
[2019-08-08] MEDS ORDERED: Epidural Premix (fent/bupiv) 110 ML EP SCH (13:45)
[2019-08-08] MEDS ORDERED: Oxytocin 20 units/ LR 1000 mL 20 UNIT/1,000 ML BAG IVC SCH (13:45)
--- NOTE | 2019-08-08 13:47 | Anesthesia Evaluation PreOp ---
Date of Encounter: 08/08/19 Time of Encounter: 13:45 - Past History Planned Operation: SHAKA Cardiac History: Denies any Significant Hx Pulmonary History: Former smoker (Quit with , 5-6pk/yr former smoker) HOSPICE VOLUNTEER History: Other (Chronic back pain attributed to broken tailbone as a child.) Other Medical History: Other (Gestational diabetes, metformin controlled, hx chlamydia, gonorrhea, BMI 60.9 morbid obesity) Anesthesia History: No Prior Anesthetic Complications, Past Anesthesia : Yes Alcohol Use: none Drug use: marijuana Medications and Allergies Pnv No.95/Ferrous Fum/Folic AC [ Caplet] 1 each PO DAILY 02/02/19 [History] Metformin HCl [Fortamet] 500 mg PO DAILY 06/02/19 [History] Aspirin [Adult Aspirin Regimen] 81 mg PO DAILY 06/08/19 [History] Fluticasone Propionate Nasal [Flonase] 1 spray PRN PRN 07/05/19 [History] Cetirizine HCl 1 tab PO DAILY 07/27/19 [History] Allergy/AdvReac Type Severity Reaction Status Date / Time No Known Allergies Allergy Verified 08/03/19 04:29 - Meds/Allergy Pre-op Review Medications Reviewed: Yes Allergies Reviewed: Yes Beta Blockers on Current Med List: No Anesthesia Results - Labs 08/08/19 07:50 08/08/19 07:50 Anesthesia Exam BP 146/81 P 91 R 16 T 97.9 Height: 5'4" Weight: 160.9kg NPO (# of Hours): 6 Pain Scale: 3 Pain Scale Used: Numeric (1 - 10) - HEENT Pupil (Motor): Pupils equal Mallampati: II Teeth: Normal Oral Opening: Greater than 3 - HOSPICE VOLUNTEER LOC: Oriented HOSPICE VOLUNTEER Motor: Normal RUE, Normal LUE, Normal RLE, Normal LLE, Normal Face HOSPICE VOLUNTEER Sensory: Normal: RUE, LUE, RLE, LLE, Face - Cardiac Rhythm: Regular Murmur: None JVD: No Carotid Bruit: No - Pulmonary Breath Sounds: bilateral Clear Respiratory Effort: Symmetrical Anesthesia Assess/Plan ASA Score: 3 Level of consciousness: Cooperative, Oriented, Tranquil Anesthetic Plan: Epidural Autologous Blood: Yes Monitoring Plan: Standard Monitors Recovery Plan: Other
[2019-08-08] MEDS: Penicillin G Potassium 2,500,000 UNIT in 0.9 % Sodium Chloride 100 ML IVPB SCH ×2 (13:58→22:30)
[2019-08-08] MEDS ORDERED: *HR* FentaNYL (PF) 100 MCG/2 ML VIAL ONE (18:27)
[2019-08-08] MEDS ORDERED: Ropivacaine/PF 0.2% 20 ML VIAL ONE (18:27)
[2019-08-08] MEDS ORDERED: *HR* Promethazine 25 MG/ML VIAL IVP ONE (19:01)
--- NOTE | 2019-08-08 20:49 | OB Labor Progress Note ---
Date of Encounter: 08/08/19 Time of Encounter: 20:46 Labor Progress Note - Subjective Subjective: Pt's jin out and was having uc's q 3 min before jin out of mod intensity. Now still with u/c's q3-4min. Cvx 3/70/-3. U/S confirmed vtx. - Cervix Cervix: /-2 - Heart Tones Heart Tones: RNST - Plan Plan: Cont pit. Expect >
--- NOTE | 2019-08-08 22:07 | Anesthesia Procedures ---
Date of Encounter: 08/08/19 Time of Encounter: 21:27 Procedures: Anesthesia - Epidural/Spinal Patient ID/Chart reviewed: Yes Patient examined: Yes OB Eval: Gestational age: 39 OB Eval: : 1 OB Eval: Hx Para: 0 OB Eval: Dilated at (cm): 4 OB Eval: Contractions: Non-stressed pattern Consent Obtained: Yes Supplemental Oxygen: None/Room Air Site Prep: Aseptic Technique, Sterile prep and drape, Povidone-Iodine 1% Patient position: upright Local Anesthetic: Lidocaine 1% Amount of Local Anesthetic used: 3 Touhy Needle Gauge: 18 Touhy Needle Depth (cm): 8 Catheter Depth at Skin (cm): 15 Test Dose (1.5% Lido + Epi): Volume given (mls): 3 Test Dose Result: Negative Loading Dose: Fentanyl (mcg): 100 Loading Dose: Other: Ropivicaine 0.2% 5ml, Normal saline 3ml Loading Dose Administered: Thru Touhy Needle Infusion Med: 0.125% Bupivacaine w/ 2 mcg/ml Fentanyl Infusion Rate (mls/hr): [address]: Tegaderm, Tape Interspace Used: L3-L4 Loss of Resistance (MIKEY): Yes Blood: No CSF: No Paresthesia: No Procedure: SHAKA placed 1st pass in upright position. MIKEY achieved with Normal Saline. Catheter threaded with ease to 15cm at the skin. Test dose negative. Pt stated comfort following epidural bolus administration. VSS throughout. Vitals + FHT's: 2127 BP 142/80 P 85 R 16 2150 BP 124/73 P 87 R 16
--- NOTE | 2019-08-08 23:18 | OB Labor Progress Note ---
Date of Encounter: 08/08/19 Time of Encounter: 22:00 Labor Progress Note - Subjective Subjective: Pt comfortable with epidural. - Cervix Cervix: 3/90/-2, post - Heart Tones Heart Tones: RNST - [place]: IUPC placed without difficulty.; - Interventions Interventions: IUPC and FSE - Plan Plan: Expect .
[2019-08-09] MEDS: Penicillin G Potassium 2,500,000 UNIT in 0.9 % Sodium Chloride 100 ML IVPB SCH (02:30)
--- NOTE | 2019-08-09 06:06 | OB Labor Progress Note ---
Date of Encounter: 08/09/19 Time of Encounter: 06:04 Labor Progress Note - Subjective Subjective: Pt getting more uncomfortable - Cervix Cervix: 3-4/90/-2 - Heart Tones Heart Tones: RNST - [place]: UC's2 min 80mmhg - Plan Plan: PT with adequate uc's and has made minimal progress in dilation and effacement overnight. D/w pt possible and she declines at this point desiring to hold off awhile longer. She is AF and has RNST. Will cont. trial of labor.
[2019-08-09] MEDS ORDERED: Chloroprocaine/PF 20 ML VIAL INFILT ONE (07:18)
[2019-08-09] MEDS ORDERED: Azithromycin 500 MG in 0.9 % Sodium Chloride 250 ML IVPB ONE (07:31)
[2019-08-09] MEDS ORDERED: *HR* Oxytocin 10 UNIT/ML VIAL IM ONE (07:50)
[2019-08-09] MEDS ORDERED: Ringers Solution, Lactated 1,000 ML ONE (07:50)
[2019-08-09] MEDS ORDERED: *HR* Morphine Sulfate/PF 10 MG/10 ML AMPUL ONE (07:53)
--- NOTE | 2019-08-09 09:03 | OB/GYN Procedure Note ---
Section - Date of procedure: 08/09/19 Preop diagnosis: arrest of descent, arrest of dilation Post-op diagnosis: same Procedure: section, primary low transverse Surgeon: Lorne Case Blood Loss: 1,000 Was there an medical records assistant present: No Digital Photographic Printer: Arturo Little Anesthesia Type: Epidural Disposition: L&D Recovery Room Specimens: Placenta - (s) Infant A Delivery Date: 08/09/19 Delivery Time: 08:00 Presentation: vertex Gender: Female Gram Weight: 2.98 kg at 1 minute: 8 at 5 minutes: 9 Shoulder Dystocia: not encountered Placenta: spontaneous Cord: 3 umbilical vessels - Narrative Narrative: She is 29-year-old 1 now para 1 female despite very adequate trial of labor did not progress past 3-4 simvastatin effaced -2 station. Did have adequate labor as express bloody adequate [place] units for over 8 hours. She was exhausted was making no progress she desired that we proceed with primary section. She was aware operative risks and signed appropriate consent. Description procedure: Patient was taken operating room where epidural was dosed. She was prepped draped in usual sterile fashion. Bladder was started being drained of clear urine. Adequate anesthesia was determined. Scalpel was used to make a Pfannenstiel skin incision which was sharply taken down the rectus fascia. I incised midline fascial incision was extended bilaterally. Peritoneum was entered and peritoneal incision was extended bilaterally bladder blade was placed and bladder flap was developed and lower uterine segment. Scalpel was used to make a low transverse uterine incision which was extended bluntly bilaterally. was delivered from vertex presentation without difficulty. Cord was clamped cut and infant was handed nurse personnel who were in attendance. Placenta was delivered manually without difficulty. This was massaged free of all residual tissue. Uterus closed 0 Vicryl running lock stitch. Second imbricating layer was placed with the first obtain hemostasis. Again irrigation was performed hemostasis was ensured. Fascia was closed with oh loop PDS in running manner. Of note 2 separate oh looped PDS was used extending from each corner to help ensure that all fascia was and help decrease risk of herniation. Deep subcutaneous tissue was closed with 2 layers of 0 plain catgut suture. Skin edges reapproximated with 4-0 Vicryl. All sponge and counts are correct patient was taken recovery in good condition.
[2019-08-09] MEDS ORDERED: *HR* HYDROmorphone (PF) 1 MG/ML SYRINGE IVP PRN ×2 (09:27→11:55)
[2019-08-09] MEDS ORDERED: *HR* OxyCODONE/APAP 5/325 TABLET PO PRN ×2 (09:27→11:55)
[2019-08-09] MEDS ORDERED: Morphine Sulfate 2 MG/ML SYRINGE IVP PRN ×2 (09:27→11:55)
[2019-08-09] MEDS ORDERED: Ibuprofen 400 MG TABLET PO PRN ×2 (09:27→11:55)
[2019-08-09] MEDS ORDERED: Ondansetron 4 MG/2 ML VIAL IVP PRN ×3 (09:27→11:55)
[2019-08-09] MEDS ORDERED: Acetaminophen IV 1,000 MG/100 ML INFUS..BTL IVPB ONE (09:33)
[2019-08-09] MEDS ORDERED: Sennosides 8.6 MG TABLET PO PRN (11:55)
[2019-08-09] MEDS ORDERED: Rho Immune Globulin 1,500 UNIT SYRINGE IM ONE (11:55)
[2019-08-09] MEDS ORDERED: Oxytocin 20 units/ LR 1000 mL 20 UNIT/1,000 ML BAG IVC SCH (11:55)
[2019-08-09] MEDS ORDERED: Ringers Solution, Lactated 1,000 ML IVC SCH (11:55)
[2019-08-09] MEDS ORDERED: Simethicone 80 MG TAB.CHEW PO PRN (11:55)
[2019-08-09] MEDS ORDERED: Metoclopramide 10 MG/2 ML VIAL IVP PRN (11:55)
[2019-08-09] MEDS ORDERED: Naloxone 0.4 MG/ML INJ IVP PRN (11:55)
[2019-08-09] MEDS: *HR* OxyCODONE/APAP 5/325 TABLET PO PRN ×2 (13:16→22:35)
[2019-08-09] MEDS: Prenatal Vit/FA 1 EACH TABLET PO SCH (15:47)
[2019-08-09] MEDS: cephALEXin 500 MG CAPSULE PO SCH ×2 (15:47→19:32)
[2019-08-09] MEDS: Ibuprofen 600 MG TABLET PO PRN ×2 (15:56→19:32)
--- NOTE | 2019-08-09 20:57 | Anesthesia Evaluation Post Op ---
Date of Encounter: 08/09/19 Time of Encounter: 20:56 - Vital Signs Vital Signs: Vital Signs/O2 Sat, Most Current Temp Pulse Resp BP Pulse Ox 98.3 F 98 14 132/78 97 08/09/19 14:13 08/09/19 14:13 08/09/19 14:13 08/09/19 14:13 08/09/19 14:13 - Lungs Lungs: Clear Ascult./Percussion - Airway Airway: Non-obstructed - Cardiovascular Regular Rate - Mental Status Mental Status: Alert & Oriented, Answers Appropriately - Pain Pain Scale: 4 - Nausea Vomiting Nausea Vomiting: Not Present - Hydration Hydration: Tolerates oral liquids, Reynoso catheter
[2019-08-10 05:53] LABS: Basophils % 0.2 %; Eosinophils # 0.1 K/mcL (0.0-0.6); Eosinophils % 0.7 %; Immature Granulocytes % 0.6 % (0-4); Lymphocytes # 1.5 K/mcL (0.6-4.6); Lymphocytes % 15.1 %; Mean Corpuscular HGB Conc 31.7 g/dL (31.6-35.5); Mean Corpuscular Hemoglobin 25.8 pg (28.0-33.3); Mean Corpuscular Volume 81.2 fL (83.0-100.0); Mean Platelet Volume 9.9 fL (9.4-12.4); Monocytes # 0.9 K/mcL (0.0-1.3); Monocytes % 8.9 %; Neutrophils # 7.6 K/mcL (1.6-8.9); Platelet Count 203 K/mcL (140-400); Red Blood Count 3.57 M/mcL (3.82-4.97); Red Cell Distribution Width 15.9 % (11.5-14.5); Segmented Neutrophils % 74.5 %; White Blood Count 10.1 K/mcL (4.3-11.1)
[2019-08-10 05:54] LABS: Hemoglobin 9.2 g/dL (11.5-15.4)
[2019-08-10] MEDS: *HR* OxyCODONE/APAP 5/325 TABLET PO PRN ×4 (06:38→21:51)
[2019-08-10] MEDS: Prenatal Vit/FA 1 EACH TABLET PO SCH (08:42)
[2019-08-10] MEDS: cephALEXin 500 MG CAPSULE PO SCH ×3 (08:42→21:40)
[2019-08-10] MEDS: Azithromycin 250 MG TABLET PO SCH (08:43)
[2019-08-10] MEDS ORDERED: MOM Conc 10 ML UD.LIQ PO ONE (10:42)
--- NOTE | 2019-08-10 10:46 | OB/GYN Progress Note ---
Date of Encounter: 08/10/19 Time of Encounter: 10:44 - Assessment and Plan (1) Status post primary low transverse section Current Visit: Yes Status: Acute Continue routine Postop/ care anticipate Discharge home tomorrow (2) Breast feeding status of mother Current Visit: Yes Status: Acute lactations support prn Subjective - Subjective Principal diagnosis: Postop day 1 primary c/s Interval history: Patient is postop day 1. Patient is concerned about no BM in 3 days and would like something to help with that. Patient is ambulating without assistance. She has TEMO dressing. Patient reports: appetite normal, voiding normally, pain well controlled, ambulating normally : doing well, nursing well Objective - Vital Signs Latest vital signs: Vital Signs Temp Pulse Resp BP Pulse Ox 08/10/19 07:45 98.6 F 104 16 124/72 08/10/19 04:22 98.1 F 96 14 135/72 97 08/09/19 21:21 98.7 F 100 15 134/75 99 08/09/19 14:13 98.3 F 98 14 132/78 97 08/09/19 13:15 98.1 F 94 16 137/74 97 08/09/19 12:15 98.2 F 102 16 127/65 98 08/09/19 11:32 97.9 F 95 16 132/74 Intake and Output 08/09/19 08/10/19 08/10/19 23:59 07:59 15:59 Intake Total 400 / 640 240 / 640 Output Total 300 / 1800 2200 / 2200 Balance -300 / -1800 -1800 / -1560 240 / -1560 Intake: Oral 400 / 640 240 / 640 Output: Catheter 300 / 1800 2200 / 2200 Other: Meal Breakfast Percent of Meal Consumed 100% - Exam Lungs: bilateral: normal Chest: Normal S1, Normal S2 Abdomen: Present: normal appearance, soft Incision: Present: dressed (with TEMO dressing) Uterus: Present: normal, firm Fundal Height: 2 (U/2) - Labs Labs: Laboratory Results - last 24 hr 08/09/19 08/10/19 06:31 05:02 WBC 10.1 RBC 3.57 L Hgb 9.2 L D Hct 29.0 L MCV 81.2 L MCH 25.8 L MCHC 31.7 RDW 15.9 H Plt Count 203 MPV 9.9 Immature Gran % 0.6 Seg Neutrophils % 74.5 Lymphocytes % 15.1 Monocytes % 8.9 Eosinophils % 0.7 Basophils % 0.2 Neutrophils # 7.6 Lymphocytes # 1.5 Monocytes # 0.9 Eosinophils # 0.1 Basophils # 0.0 POC Glucose 108 H
[2019-08-10] MEDS: Ibuprofen 600 MG TABLET PO PRN (15:19)
[2019-08-11] MEDS: Ibuprofen 600 MG TABLET PO PRN (05:29)
[2019-08-11] MEDS: cephALEXin 500 MG CAPSULE PO SCH (08:34)
[2019-08-11] MEDS: Prenatal Vit/FA 1 EACH TABLET PO SCH (08:34)
[2019-08-11] MEDS: Azithromycin 250 MG TABLET PO SCH ×2 (08:34→08:35)
[2019-08-11 09:05] VITALS: BP 145/88
[2019-08-11] MEDS: *HR* OxyCODONE/APAP 5/325 TABLET PO PRN (10:41)
--- NOTE | 2019-08-11 11:16 | Discharge Summary ---
Date of Encounter: 08/11/19 Time of Encounter: 11:14 - Discharge Diagnosis (1) Status post primary low transverse section Priority: Primary Status: Acute Comments: Patient meeting day one milestones. Pain well-controlled with prescribed medications. Voiding without difficulty, tolerating regular diet, bleeding light. Positive bowel movement. Anticipate discharge today (2) Acute blood loss anemia Priority: Secondary Status: Acute Comments: Continue daily iron (3) Breast feeding status of mother Priority: Secondary Status: Acute Comments: support as needed. (4) Gestational diabetes Priority: Secondary Status: Acute Comments: Follow up in 4-12 weeks for 2-hr GTT Qualifiers: Gestational diabetes mellitus control: oral hypoglycemic-controlled Trimester: third trimester Qualified Code(s): O24.415 - Gestational diabetes mellitus in , controlled by oral hypoglycemic drugs (5) Nexplanon insertion Priority: Secondary Status: Acute Comments: Patient desires Nexplanon placement for control prior to discharge. - Discharge Medications Prescriptions: New Docusate [Colace] 100 mg PO BID #60 capsule Ferrous Sulfate 325 mg PO DAILY #30 tablet Ibuprofen [Motrin] 600 mg PO Q6HR PRN #60 tablet PRN Reason: Cramping OR Mild pain (1-3) OxyCODONE/APAP 5/325 [Percocet 5/325 MG] 1 each PO Q6HR PRN 7 Days #28 tablet PRN Reason: Moderate pain 4-6 Acetaminophen [Tylenol] 500 mg PO Q6HR PRN tablet PRN Reason: POST C/S - Mild Pain Simethicone [Gas-X] 80 mg PO TID PRN tab.chew PRN Reason: Dyspepsia Continued Aspirin [Adult Aspirin Regimen] 81 mg PO DAILY Fluticasone Propionate Nasal [Flonase] 1 spray PRN PRN PRN Reason: Congestion Cetirizine HCl 1 tab PO DAILY Pnv No.95/Ferrous Fum/Folic AC [ Caplet] 1 each PO DAILY Discontinued Metformin HCl [Fortamet] 500 mg PO DAILY Home Medications: Pnv No.95/Ferrous Fum/Folic AC [ Caplet] 1 each PO DAILY 02/02/19 [History] Aspirin [Adult Aspirin Regimen] 81 mg PO DAILY 06/08/19 [History] Fluticasone Propionate Nasal [Flonase] 1 spray PRN PRN 07/05/19 [History] Cetirizine HCl 1 tab PO DAILY 07/27/19 [History] Acetaminophen [Tylenol] 500 mg PO Q6HR PRN tablet 08/11/19 [Rx] Docusate [Colace] 100 mg PO BID #60 capsule 08/11/19 [Rx] Ferrous Sulfate 325 mg PO DAILY #30 tablet 08/11/19 [Rx] Ibuprofen [Motrin] 600 mg PO Q6HR PRN #60 tablet 08/11/19 [Rx] OxyCODONE/APAP 5/325 [Percocet 5/325 MG] 1 each PO Q6HR PRN 7 Days #28 tablet 08/11/19 [Rx] Simethicone [Gas-X] 80 mg PO TID PRN tab.chew 08/11/19 [Rx] Allergies/Adverse Reactions: Allergy/AdvReac Type Severity Reaction Status Date / Time No Known Allergies Allergy Verified 08/03/19 04:29 Data Procedures and tests throughout hospitalization: Laboratory Tests 08/08/19 08/08/19 08/08/19 07:50 07:50 14:42 WBC 9.5 RBC 4.56 Hgb 11.8 Hct 37.0 MCV 81.1 L MCH 25.9 L MCHC 31.9 RDW 15.7 H Plt Count 243 MPV 9.9 Immature Gran % 0.7 Seg Neutrophils % 72.0 Lymphocytes % 19.2 Monocytes % 6.5 Eosinophils % 1.2 Basophils % 0.4 Neutrophils # 6.8 Lymphocytes # 1.8 Monocytes # 0.6 Eosinophils # 0.1 Basophils # 0.0 Glucose 109 H POC Glucose 98 08/08/19 08/08/19 08/09/19 17:58 21:57 02:06 WBC RBC Hgb Hct MCV MCH MCHC RDW Plt Count MPV Immature Gran % Seg Neutrophils % Lymphocytes % Monocytes % Eosinophils % Basophils % Neutrophils # Lymphocytes # Monocytes # Eosinophils # Basophils # Glucose POC Glucose 103 H 123 H 97 08/09/19 08/10/19 06:31 05:02 WBC 10.1 RBC 3.57 L Hgb 9.2 L D Hct 29.0 L MCV 81.2 L MCH 25.8 L MCHC 31.7 RDW 15.9 H Plt Count 203 MPV 9.9 Immature Gran % 0.6 Seg Neutrophils % 74.5 Lymphocytes % 15.1 Monocytes % 8.9 Eosinophils % 0.7 Basophils % 0.2 Neutrophils # 7.6 Lymphocytes # 1.5 Monocytes # 0.9 Eosinophils # 0.1 Basophils # 0.0 Glucose POC Glucose 108 H Date of admission: 08/08/19 09:50 Primary care physician: Pat Pope Discharging clinician: Patricia Varner Anticipated date of discharge: 08/11/19 - Patient Status Disposition: Home, Self-Care Condition: Good Functional capacity at discharge: independent ambulation Overall status at discharge: patient is progressing back to baseline - Discharge Instructions Follow Up With: Pat Pope CNP [Primary Care Provider] - Lorne Wallace MD [Partnered Physician] - - Diet and Activity Activity: resume usual activities as tolerated Diet: regular diet Hospital Course Reason for admission: induction of labor Delivery: section Episiotomy: none Laceration: none Other procedures: none complications: none Discharge diagnosis: IUP at term delivered baby: female Hospital course: Date of procedure: 08/09/19 Preop diagnosis: arrest of descent, arrest of dilation Post-op diagnosis: same Procedure: section, primary low transverse Surgeon: Lorne Wallace Quantitated Blood Loss: 1,000 Was there an bacteriology research assistant present: No Wire Charger: Arturo Little Anesthesia Type: Epidural Disposition: L&D Recovery Room Specimens: Placenta - (s) A Delivery Date: 08/09/19 Infant Delivery Time: 08:00 Presentation: vertex Gender: Female Gram Weight: 2.98 kg at 1 minute: 8 at 5 minutes: 9 Shoulder Dystocia: not encountered Placenta: spontaneous Cord: 3 umbilical vessels - Narrative Narrative: She is 29-year-old 1 now para 1 female despite very adequate trial of labor did not progress past 3-4 simvastatin effaced -2 station. Did have adequate labor as express bloody adequate [place] units for over 8 hours. She was exhausted was making no progress she desired that we proceed with primary section. She was aware operative risks and signed appropriate consent. Description procedure: Patient was taken operating room where epidural was dosed. She was prepped draped in usual sterile fashion. Bladder was started being drained of clear urine. Adequate anesthesia was determined. Scalpel was used to make a Pfannenstiel skin incision which was sharply taken down the rectus fascia. I incised midline fascial incision was extended bilaterally. Peritoneum was entered and peritoneal incision was extended bilaterally bladder blade was placed and bladder flap was developed and lower uterine segment. Scalpel was used to make a low transverse uterine incision which was extended bluntly bilaterally. was delivered from vertex presentation without difficulty. Cord was clamped cut and was handed nurse personnel who were in attendance. Placenta was delivered manually without difficulty. This was massaged free of all residual tissue. Uterus closed 0 Vicryl running lock stitch. Second imbricating layer was placed with the first obtain hemostasis. Again irrigation was performed hemostasis was ensured. Fascia was closed with oh loop PDS in running manner. Of note 2 separate oh looped PDS was used extend ing from each corner to help ensure that all fascia was and help decrease risk of herniation. Deep subcutaneous tissue was closed with 2 layers of 0 plain catgut suture. Skin edges reapproximated with 4-0 Vicryl. All sponge and counts are correct patient was taken recovery in good condition. Time Attestation: Total time spent providing and/or coordinating discharge services: Time Spent: Less than 30 minutes - VTE Reasons for not Prescribing Prophylaxis: Treatment not Indicated - Low risk for VTE Documentation of Mechanical Device: Intermittent pneumatic compression device Exam - Constitutional Vitals: Temp Pulse Resp BP Pulse Ox 97.4 F L 95 14 145/88 97 08/11/19 08:00 08/11/19 08:00 08/11/19 08:00 08/11/19 08:00 08/11/19 08:00 General appearance IM: A&O X 3, morbidly obese, pleasant, no acute distress - Respiratory Respiratory exam: Present: CTAB. Absent: respiratory distress - Cardiovascular Cardiovascular exam IM: Present: RRR, +S1, +S2. Absent: irregular rhythm - GI/Abdominal GI/Abdominal exam IM: normal bowel sounds, soft Incision: dry, dressed (TEMO) - Rectal Rectal exam: deferred - External exam: normal external exam Uterine Tone: Firm Uterus Position: At Umbilicus, Midline - Extremities Exam Extremities exam IM: Present: full ROM, normal capillary refill, normal inspection. Absent: calf tenderness - Neurological Exam Neurological exam: alert, normal gait, oriented X3
[2019-08-11] MEDS ORDERED: Etonogestrel 68 MG IMPLANT IL ONE (12:00)
[2019-08-11] MEDS ORDERED: Lidocaine/EPI 1:100k 1% 30 ML VIAL INFILT ONE (12:00)
--- NOTE | 2019-08-11 12:52 | OB/GYN Procedure Note ---
OB-[employer] SUPERVISOR: Procedure - Diagnosis Date of procedure: 08/11/19 Pre-op diagnosis: Desires contraception Post-op diagnosis: same - Procedure Procedure: Nexplanon insertion Surgeon: Patricia Varner Was there an web assistant present: No Anesthesia provider: Patricia Varner Anesthesia Type: Local Procedure Complications: None Disposition: no change Narrative: Patient desires Nexplanon for control and would like to have it placed p rior to discharge. Examination: Informed consent was obtained and time out performed. Patient was placed in supine position with left arm in the appropriate position. Betadine was used to prep the arm in sterile fashion. 1% Lidocaine was used for anesthesia. The Nexplanon was inserted in the subcutaneous tissue to the appropriate length then the Nexplanon was released. Both myself and the patient can palpate the keyshawn without difficulty. Bandage and pressure dressing was applied. Patient tolerate the procedure well. Patient was instructed on wound care and is to follow up as needed. Patient educated on back up control for 7 days. Procedure: Correct patient, procedure, and site were verified and time out performed per policy. Therapeutic Injections: 3 mL of Lidocaine given at site of insertion by Roselia Varner CNM
== END 2019-08-11 13:38 | disposition home or self-care (01) | DRG 540 ==
LOC: 1NENULAB → 1NENUOBS 08-09 11:29
PROVIDERS: ADMIT Obstetrics & Gynecology; ATTEND Obstetrics & Gynecology